=== PATIENT | male | born 1980 ===

== ENCOUNTER 2019-03-24 22:51 | Observation (INO) | payer OTHER ==
[2019-03-24 23:03] VITALS: BMI 30.8
[2019-03-25] MEDS ORDERED: Oxycodone/Acetaminophen 5/325 mg Tab PO STA (00:09)
[2019-03-25] MEDS ORDERED: Oxycodone/Acetaminophen 5/325 mg Tab ONE (00:40)
--- NOTE | 2019-03-25 04:56 | ED PDOC ---
HPI: Back Time Seen by Provider: 03/24/19 23:18 Chief Complaint (Nursing): Back Pain Chief Complaint (Provider): Lower back pain x 2 days History Per: Patient History/Exam Limitations: no limitations Onset/Duration Of Symptoms: Days Current Symptoms Are (Timing): Still Present Additional Complaint(s): 39 yo male with history of DM presents for evaluation lower back pain. PT has history of herniated discs but states he occasionally has flare ups. PT states flares up are normally controlled with motrin, stim machine or massage. PT states he tried motrin and his 's percocet but it did not help the pain. PT denies radiation of pain. PT denies numbness/tingling. PT denies bladder or bowel incontinence. Pt ddnies trauma or change in activities. Past Medical History Reviewed: Historical Data, Nursing Documentation, Vital Signs Vital Signs: Last Vital Signs Temp 98.3 F 03/24/19 23:02 Pulse 75 03/24/19 23:02 Resp 16 03/24/19 23:02 BP 155/90 H 03/24/19 23:02 Pulse Ox 98 03/24/19 23:02 Primary Care Provider: Doctor,Conversion - Medical History PMH: Dementia - Surgical History Surgical History: No Surg Hx - Family History Family History: States: No Known Family Hx - Living Arrangements Living Arrangements: With Family - Social History Current smoker - smoking cessation education provided: No - Allergies Allergies/Adverse Reactions: Allergies Allergy/AdvReac Type Severity Reaction Status Date / Time banana Allergy SWELLING Verified 03/24/19 23:03 nut - unspecified Allergy RASH Verified 03/24/19 23:03 Review of Systems ROS Statement: Except As Marked, All Systems Reviewed And Found Negative Constitutional: Negative for: Fever, Chills Cardiovascular: Negative for: Chest Pain, Palpitations Respiratory: Negative for: Cough, Shortness of Breath Gastrointestinal: Negative for: Nausea, Vomiting, Abdominal Pain Musculoskeletal: Positive for: Back Pain Physical Exam - Reviewed Nursing Documentation Reviewed: Yes Vital Signs Reviewed: Yes - Physical Exam Appears: Positive for: Well, Non-toxic, No Acute Distress Head Exam: Positive for: ATRAUMATIC, NORMAL INSPECTION, NORMOCEPHALIC Skin: Positive for: Normal Color, Warm, DRY Eye Exam: Positive for: Normal appearance ENT: Positive for: Normal ENT Inspection Neck: Positive for: Normal, Painless ROM Cardiovascular/Chest: Positive for: Regular Rate, Rhythm Respiratory: Positive for: Normal Breath Sounds. Negative for: Accessory Muscle Use, Respiratory Distress Gastrointestinal/Abdominal: Positive for: Normal Exam, Soft Back: Positive for: Normal Inspection, Decreased ROM, Muscle Spasm. Negative for: Vertebral Tenderness Extremity: Positive for: Normal ROM Neurological/Psych: Positive for: Awake, Alert, Normal Tone - ECG O2 Sat by Pulse Oximetry: 98 Medical Decision Making Medical Decision Making: Pt reports little improvement after flexeril 10mg, percocet 5/235mg, solumderol 125mg and morphine 2mg. Discussed admission for pain management. Disposition - Clinical Impression Clinical Impression: Intractable low back pain - Patient ED Disposition Is Patient to be Admitted: Yes - Disposition Disposition Time: 04:59 Condition: GOOD
[2019-03-25 05:19] LABS: ALB/GLOB RATIO 1.5 (1.0-2.1); ALBUMIN 4.1 g/dL (3.5-5.0); ALT/SGPT 29 U/L (21-72); AST/SGOT 17 U/L (17-59); BLOOD UREA NITROGEN 12 mg/dl (9-20); CALCIUM 9.1 mg/dL (8.4-10.2); GFR NON-AFRICAN AMERICAN > 60
[2019-03-25 05:35] LABS: BASO % 0.2 % (0.0-2.0); EOS % 0.3 % (0.0-4.0); HEMOGLOBIN 14.1 g/dL (12.0-18.0); LYMPH # 0.5 K/uL (1.0-4.3); LYMPH % 6.1 % (20.0-40.0); MEAN CELL VOLUME 83.5 fl (80.0-94.0); MEAN CORPUSCULAR HEMOGLOBIN 27.6 pg (27.0-31.0); MEAN CORPUSCULAR HGB CONC 33.1 g/dL (33.0-37.0); MEAN PLATELET VOLUME 9.4 fl (7.2-11.7); MONO # 0.1 K/uL (0.0-0.8); MONO % 1.4 % (0.0-10.0); NEUT # 6.8 K/uL (1.8-7.0); PLATELET COUNT 213 K/uL (130-400); RBC 5.12 Mil/uL (4.40-5.90); WHITE BLOOD COUNT 7.4 K/uL (4.8-10.8)
[2019-03-25 07:00] LABS: BANDS 1 % (0-2); LYMPHOCYTE 4 % (20-50); NEUTROPHIL 94 % (42-75); REACTIVE LYMPHOCYTES 1 % (0-0); TOTAL CELLS COUNTED 100
[2019-03-25 07:01] LABS: PLATELET ESTIMATE NORMAL (NORMAL)
[2019-03-25 07:17] LABS: MONOCYTE 0 % (0-10)
[2019-03-25] MEDS: Enoxaparin 40 mg Syringe SC SCH (10:38)
[2019-03-25] MEDS: GlipiZIDE 10 mg SR Tab PO SCH (10:39)
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
--- NOTE | 2019-03-25 12:35 | CP.PCM.CON ---
History of Present Illness - History of Present Illness History of Present Illness: SPINE Pt seen and examined. Full consult dictated. Rec PT/meds and gradual mobilization as pain allows. Past Patient History - Past Social History Smoking Status: Never Smoked - NEUROLOGICAL Hx Dementia: No - ENDOCRINE/METABOLIC Hx Diabetes Mellitus Type 2: Yes - MUSCULOSKELETAL/RHEUMATOLOGICAL Hx Musculoskeletal Disorders: Yes - PSYCHIATRIC Hx Substance Use: No Meds Allergies/Adverse Reactions: Allergies Allergy/AdvReac Type Severity Reaction Status Date / Time banana Allergy SWELLING Verified 03/24/19 23:03 nut - unspecified Allergy RASH Verified 03/24/19 23:03 - Medications Medications: Current Medications Cyclobenzaprine HCl (Flexeril) 10 mg PO Q12 [facility] Last Admin: 03/25/19 10:38 Dose: 10 mg Enoxaparin Sodium (Lovenox) 40 mg SC DAILY [facility]; Protocol Last Admin: 03/25/19 10:38 Dose: 40 mg Glipizide (Glucotrol Xl) 10 mg PO DAILY [facility] Last Admin: 03/25/19 10:39 Dose: 10 mg Insulin Detemir (Levemir) 30 units SC HS [facility] Ketorolac Tromethamine (Toradol) 15 mg IVP Q6 PRN PRN Reason: Pain, moderate (4-7) Metformin HCl (Glucophage) 1,000 mg PO BID [facility] Sitagliptin Phosphate (Januvia) 25 mg PO DAILY [facility] Last Admin: 03/25/19 10:39 Dose: 25 mg Results - Vital Signs Recent Vital Signs: Last Vital Signs Temp 97.8 F 03/25/19 08:39 Pulse 71 03/25/19 08:39 Resp 20 03/25/19 08:39 BP 133/80 03/25/19 08:39 Pulse Ox 99 03/25/19 08:39 - Labs Result Diagrams: 03/25/19 04:50 03/25/19 04:50 Labs: Laboratory Results - last 24 hr 03/25/19 03/25/19 03/25/19 04:50 04:50 09:23 WBC 7.4 RBC 5.12 Hgb 14.1 Hct 42.7 MCV 83.5 MCH 27.6 MCHC 33.1 RDW 14.0 Plt Count 213 MPV 9.4 Neut % (Auto) 92.0 H Lymph % (Auto) 6.1 L [place] % (Auto) 1.4 Eos % (Auto) 0.3 Baso % (Auto) 0.2 Neut # (Auto) 6.8 Lymph # (Auto) 0.5 L [place] # (Auto) 0.1 Eos # (Auto) 0.0 Baso # (Auto) 0.0 Neutrophils % (Manual) 94 H Band Neutrophils % 1 Lymphocytes % (Manual) 4 L Reactive Lymphs % 1 H Monocytes % (Manual) 0 Platelet Estimate Normal Sodium 138 Potassium 4.4 Chloride 104 Carbon Dioxide 25 Anion Gap 13 BUN 12 Creatinine 0.7 L Est GFR ( Amer) > 60 Est GFR (Non-Af Amer) > 60 POC Glucose (mg/dL) 262 H Random Glucose 237 H Calcium 9.1 Total Bilirubin 0.4 AST 17 ALT 29 Alkaline Phosphatase 58 Total Protein 6.9 Albumin 4.1 Globulin 2.7 Albumin/Globulin Ratio 1.5 03/25/19 10:55 WBC RBC Hgb Hct MCV MCH MCHC RDW Plt Count MPV Neut % (Auto) Lymph % (Auto) [place] % (Auto) Eos % (Auto) Baso % (Auto) Neut # (Auto) Lymph # (Auto) [place] # (Auto) Eos # (Auto) Baso # (Auto) Neutrophils % (Manual) Band Neutrophils % Lymphocytes % (Manual) Reactive Lymphs % Monocytes % (Manual) Platelet Estimate Sodium Potassium Chloride Carbon Dioxide Anion Gap BUN Creatinine Est GFR ( Amer) Est GFR (Non-Af Amer) POC Glucose (mg/dL) 171 H Random Glucose Calcium Total Bilirubin AST ALT Alkaline Phosphatase Total Protein Albumin Globulin Albumin/Globulin Ratio
[2019-03-25] MEDS: Insulin Detemir 100 Units/ml Inj SC SCH (21:10)
[2019-03-25 23:59] LABS: SQUAMOUS EPITHIAL < 1 /hpf (0-5); URINE BACTERIA RARE (<OCC); URINE BILIRUBIN NEGATIVE (NEGATIVE); URINE BLOOD NEGATIVE (NEGATIVE); URINE CLARITY SLIGHTY-CLOUDY (Clear); URINE COLOR YELLOW (YELLOW); URINE GLUCOSE (UA) >=500 mg/dL (NEGATIVE); URINE LEUKOCYTE ESTERASE NEG Leu/uL (Negative); URINE PROTEIN 30 mg/dL (NEGATIVE); URINE UROBILINOGEN 0.2-1.0 mg/dL (0.2-1.0)
[2019-03-26] MEDS: GlipiZIDE 10 mg SR Tab PO SCH (09:34)
[2019-03-26] MEDS: Enoxaparin 40 mg Syringe SC SCH (09:35)
--- NOTE | 2019-03-26 10:19 | PN ---
DATE: 03/26/2019 SUBJECTIVE: The patient seen and examined. Interim events noted. Consults noted and appreciated. Neurosurgery followup and intervention noted and appreciated. The patient remains in regular medical floor. Still complains of significant back pain, but seems to be improving, but feels needs a lot of effort in performing his ADLs. No chest pain. No shortness of breath. No urinary or bowel incontinence or any new problems. No new weakness. PHYSICAL EXAMINATION: GENERAL: The patient is in no acute distress. VITAL SIGNS: Stable. HEART: S1, S2. Normal, regular. LUNGS: Good bilateral air exchange. ABDOMEN: Soft, nontender. EXTREMITIES: No edema. No calf swelling, no tenderness, no acute ischemia. No sign of distal neurovascular compromise. No sign of acute fracture. BACK:: Exam is essentially unremarkable. The patient's movement seems to have improved. The patient was able to move and also was able to walk to the bathroom although requested left foot. CENTRAL NERVOUS SYSTEM: Essentially unchanged. DIAGNOSTIC DATA: Available diagnostic data reviewed. ASSESSMENT AND PLAN: Physical therapy evaluation noted and appreciated. Plan as ordered. Hardy Vasquez MD
[2019-03-26 16:35] VITALS: RESP 19; O2SAT 98
[2019-03-26] MEDS: Insulin Detemir 100 Units/ml Inj SC SCH (21:18)
[2019-03-27 07:48] VITALS: BP 141/88; PULSE 73; TEMP 97.9
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
[2019-03-27] MEDS: Enoxaparin 40 mg Syringe SC SCH (08:46)
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
[2019-03-27] MEDS: GlipiZIDE 10 mg SR Tab PO SCH (08:47)
--- NOTE | 2019-03-27 15:00 | PN ---
DATE: 03/27/2019 SUBJECTIVE: The patient was seen and examined. Interim events noted. The patient feels much better. Back pain is present, but much improved. The patient is able to ambulate and do his ADL without any problem. No chest pain. No shortness of breath. No side effects from medication. PHYSICAL EXAMINATION: GENERAL: The patient is in no acute distress. VITAL SIGNS: Stable. HEART: S1, S2, normal, regular. LUNGS: Good bilateral air exchange. ABDOMEN: Soft, nontender. EXTREMITIES: No edema. No calf swelling. No tenderness. No acute ischemia. CENTRAL NERVOUS SYSTEM: Essentially unchanged. DIAGNOSTIC DATA: Available diagnostic data reviewed. ASSESSMENT AND PLAN: Overall, the patient's back pain is remarkably improved and the patient is medically stable and able to do his activities of daily living. Plan as ordered. Hardy Vasquez MD
== END 2019-03-27 13:54 | disposition home or self-care (01) ==
LOC: H.ER 22:51 → H.ERHOLD 03-25 05:43 → H.MEDSURG1 03-25 06:57
PROVIDERS: ADMIT Internal Medicine; ATTEND Internal Medicine
DX: M54.5 Low back pain (principal); E11.65 Type 2 diabetes mellitus with hyperglycemia; E66.9 Obesity, unspecified; Z68.30 Body mass index [BMI] 30.0-30.9, adult; F03.90 Unspecified dementia, unspecified severity, without behavioral disturbance, psychotic disturbance, mood disturbance, and anxiety; I10 Essential (primary) hypertension; J45.909 Unspecified asthma, uncomplicated
CPT/HCPCS: 36415; 72100; 80053; 81003; 82607; 82948; 84443; 85025; 85651; 96372; 97161; 97530; 99284; G0378; G8978; G8979; J1650; J1885; J2270; J2930